=== PATIENT | female | born 1975 | race Caucasian/White ===

== ENCOUNTER 2024-06-26 22:31 | Emergency (ER) | payer BC ==
[~2024-06-26] VITALS: Ht 165.1 cm; Wt 74.8 kg
[2024-06-27 00:43] VITALS: BP 138/98; TEMP 98.7; O2SAT 98
== END 2024-06-27 00:44 | disposition home or self-care (01) ==
LOC: ER 22:38
DX: I10 Essential (primary) hypertension (principal); Z90.49 Acquired absence of other specified parts of digestive tract